=== PATIENT | female | born 1975 | race Caucasian/White ===

== ENCOUNTER → 2016-04-10 | Outpatient (CLI) | payer OTHER ==
[~2016-04-10] MED LIST: IBIFON 600600 MG PO; PRENATAL1 TA1 PO; SENOKOT S 50 MG1 TAB PO
== END ==
LOC: MC.RAD 04-09 14:00
DX: N63 Unspecified lump in breast (principal)

== ENCOUNTER → 2016-12-29 | Outpatient (CLI) | payer OTHER | LOC: COL.RAD 11:57 | DX: Z01.89 Encounter for other specified special examinations (principal) ==

== ENCOUNTER → 2017-02-05 | Outpatient (CLI) | payer OTHER | LOC: MHCPAIN 10:11 | DX: G89.29 Other chronic pain (principal); M79.1 Myalgia; R10.11 Right upper quadrant pain | CPT/HCPCS: G0463 ==

== ENCOUNTER → 2017-09-21 | Outpatient (CLI) | payer OTHER | LOC: MC.RAD 06:55 | DX: Z12.31 Encounter for screening mammogram for malignant neoplasm of breast (principal); R92.0 Mammographic microcalcification found on diagnostic imaging of breast ==

== ENCOUNTER → 2017-09-22 | Outpatient (CLI) | payer OTHER | LOC: MC.RAD 10:45 | DX: R92.0 Mammographic microcalcification found on diagnostic imaging of breast (principal) ==

== ENCOUNTER → 2017-09-23 | Outpatient (CLI) | payer OTHER | LOC: MC.RAD 13:44 | DX: N60.42 Mammary duct ectasia of left breast (principal); N60.12 Diffuse cystic mastopathy of left breast; R92.0 Mammographic microcalcification found on diagnostic imaging of breast ==

== ENCOUNTER → 2018-07-13 | Outpatient (CLI) | payer OTHER | LOC: MC.RAD 11:11 | DX: Z12.31 Encounter for screening mammogram for malignant neoplasm of breast (principal); Z98.82 Breast implant status; Z87.19 Personal history of other diseases of the digestive system ==